=== PATIENT | male | born 1960 | race Asian ===

== ENCOUNTER → 2020-07-22 | Outpatient (CLI) | payer BC ==
[~2020-07-22] MED LIST: REGADENOSON 0.4 MG/5 ML SYRINGE ONE
== END | disposition home or self-care (01) ==
LOC: CFH 06:51
PROVIDERS: ATTEND Internal Medicine Cardiovascular Disease
DX: I08.8 Other rheumatic multiple valve diseases (principal); R07.89 Other chest pain; R06.02 Shortness of breath
CPT/HCPCS: 78452; 93017; 93306; A9502; J2785

== ENCOUNTER 2020-08-12 11:00 | Day surgery (SDC) | payer BC, OTHER ==
[~2020-08-12] VITALS: Ht 162.6 cm; Wt 62.0 kg
[2020-08-12] MEDS ORDERED: APIX5TAB PO (12:02)
[2020-08-12] MEDS ORDERED: MULT-500 PO (12:02)
[2020-08-12] MEDS ORDERED: PROPOFOL 10 MG/ML, 20ML ONE (12:41)
[2020-08-12 12:47] LABS: ANION GAP 4 mmol/L (5-15); CALCIUM 9.2 mg/dL (8.5-10.1); CHLORIDE 107 mmol/L (98-107); CREATININE 1.12 mg/dL (0.7-1.3)
== END 2020-08-12 13:53 | disposition home or self-care (01) ==
LOC: CACL 11:00
PROVIDERS: ATTEND Internal Medicine Cardiovascular Disease
DX: I48.19 Other persistent atrial fibrillation (principal); E78.00 Pure hypercholesterolemia, unspecified; Z79.01 Long term (current) use of anticoagulants; Z79.82 Long term (current) use of aspirin; Z79.899 Other long term (current) drug therapy
CPT/HCPCS: 36415; 80048; 92960; 93005; J2704

== ENCOUNTER 2020-09-15 09:53 | Day surgery (SDC) | payer OTHER ==
[~2020-09-15 09:53] MED LIST changes: +APIX5TAB PO; +MULT-500 PO; -REGADENOSON 0.4 MG/5 ML SYRINGE ONE
[2020-09-15] MEDS ORDERED: FLEC100T PO (10:16)
[2020-09-15] MEDS ORDERED: SODIUM CHLORIDE 0.9% 500 ML IV PRN (10:30)
[2020-09-15] MEDS ORDERED: PROPOFOL 10 MG/ML, 20ML ONE (12:42)
== END 2020-09-15 13:45 | disposition home or self-care (01) ==
LOC: CACL 09:53
PROVIDERS: ATTEND Internal Medicine Cardiovascular Disease
DX: I48.0 Paroxysmal atrial fibrillation (principal); E78.5 Hyperlipidemia, unspecified; Z79.01 Long term (current) use of anticoagulants; Z79.899 Other long term (current) drug therapy
CPT/HCPCS: 92960; J2704

== ENCOUNTER → 2021-03-02 | Outpatient (CLI) | payer OTHER ==
[~2021-03-02] MED LIST changes: +FLEC100T PO; +OMNIPAQUE 350 MG/ML, 150 ML BOTTLE ONE
== END | disposition home or self-care (01) ==
LOC: CFH 13:44
PROVIDERS: ATTEND Internal Medicine Cardiovascular Disease
DX: I48.91 Unspecified atrial fibrillation (principal); R06.02 Shortness of breath
CPT/HCPCS: 71046; 75572; Q9967; U0005; U0003

== ENCOUNTER 2021-03-05 06:09 | Observation (INO) | payer OTHER ==
[~2021-03-05] VITALS: Ht 160 cm; Wt 68.8 kg
[~2021-03-05 06:09] MED LIST changes: -OMNIPAQUE 350 MG/ML, 150 ML BOTTLE ONE
[2021-03-05] MEDS ORDERED: MULT-658 PO (06:44)
[2021-03-05 06:52] VITALS: BP 110/74
[2021-03-05] MEDS ORDERED: SODIUM CHLORIDE 0.9% 1,000 ML IV SCH ×2 (07:00)
[2021-03-05 07:16] LABS: BASOPHILS % (AUTO) 0 % (0-1); EOSINOPHILS % (AUTO) 4 % (1-7); LYMPHOCYTES % (AUTO) 39 % (22-44); MEAN CORPUSCULAR HEMOGLOBIN 28.4 pg (27.5-34.5); MEAN CORPUSCULAR HGB CONC 33.2 g/dL (33.2-36.2); MEAN PLATELET VOLUME 8.2 fL (7.4-10.4); MONOCYTES % (AUTO) 13 % (2-9); NEUTROPHILS % (AUTO) 44 % (42-75); PLATELET COUNT 230 x10^3/uL (130-400); RED BLOOD COUNT 5.17 x10^6/uL (4.38-5.82)
[2021-03-05] MEDS ORDERED: FENTANYL PF 250 MCG/5ML ONE (07:25)
[2021-03-05] MEDS ORDERED: MIDAZOLAM 1 MG/ML, 2ML ONE (07:25)
[2021-03-05] MEDS ORDERED: PROPOFOL 50 ML ONE (07:25)
[2021-03-05 07:26] LABS: ANION GAP 9 mmol/L (5-15); CHLORIDE 107 mmol/L (98-107); CREATININE 1.07 mg/dL (0.7-1.3)
[2021-03-05] MEDS ORDERED: DEXAMETHASONE 4 MG/ML, 1ML ONE (08:28)
[2021-03-05] MEDS ORDERED: LIDOCAINE 1%, 20ML ONE (09:03)
[2021-03-05] MEDS ORDERED: ISOPROTERENOL 0.2MG/ML, 5ML ONE (09:05)
[2021-03-05] MEDS ORDERED: SUCCINYLCHOLINE 20 MG/ML, 10ML ONE (11:36)
[2021-03-05] MEDS ORDERED: ROCURONIUM 10MG/ML,5ML ONE (11:36)
[2021-03-05] MEDS ORDERED: ONDANSETRON 2MG/ML, 2ML ONE (11:36)
[2021-03-05] MEDS ORDERED: HEPARIN 1,000 UNITS/ML, 10ML ONE ×2 (11:36)
[2021-03-05] MEDS ORDERED: ZOLPIDEM 5MG TABLET PO PRN (12:00)
[2021-03-05] MEDS ORDERED: APIXABAN 5 MG TABLET PO SCH (12:00)
[2021-03-05] MEDS ORDERED: ONDANSETRON 2MG/ML, 2ML IVPush PRN ×2 (12:00→13:00)
[2021-03-05] MEDS ORDERED: ACETAMINOPHEN 325 MG TABLET PO PRN ×2 (12:00→13:00)
[2021-03-05] MEDS: APIXABAN 5 MG TABLET PO SCH ×2 (12:00→21:55)
[2021-03-05] MEDS ORDERED: OXYcodone 5 MG/5 ML ORAL.SOL UDC ONE (12:25)
[2021-03-05] MEDS ORDERED: FENTANYL PF 100 MCG/2ML ONE (12:25)
[2021-03-05] MEDS: FENTANYL PF 100 MCG/2ML IV PRN ×2 (12:35→13:06)
[2021-03-05] MEDS ORDERED: APIXABAN 5 MG TABLET ONE (12:47)
[2021-03-05] MEDS ORDERED: DIPHENHYDRAMINE 50 MG/ML, 1ML IVPush PRN (13:00)
[2021-03-05] MEDS ORDERED: EPHEDRINE 50 MG/ML, 1ML IM PRN (13:00)
[2021-03-05] MEDS ORDERED: PROMETHAZINE 25 MG/ML, 1ML IVPush PRN (13:00)
[2021-03-05] MEDS ORDERED: morphine SULFATE 10 MG/ML, 1ML IVPush PRN (13:00)
[2021-03-05] MEDS ORDERED: OXYcodone 5 MG/5 ML ORAL.SOL UDC PO PRN (13:00)
[2021-03-05] MEDS ORDERED: DIAZEPAM 5 MG/ML, 2ML IVPush PRN (13:00)
[2021-03-05] MEDS ORDERED: EPHEDRINE 50 MG/ML, 1ML IVPush PRN (13:00)
[2021-03-05] MEDS ORDERED: LABETALOL 5MG/ML, 20ML IV PRN (13:00)
[2021-03-05] MEDS ORDERED: MEPERIDINE/PF 25MG/0.5ML IVPush PRN (13:00)
[2021-03-05 13:50] VITALS: BP 103/70
[2021-03-05 20:07] VITALS: BP 100/71
[2021-03-05] MEDS: FLECAINIDE 100MG TABLET PO SCH (21:55)
[2021-03-06 01:49] VITALS: BP 104/71
[2021-03-06 07:35] VITALS: BP 115/80
[2021-03-06] MEDS: APIXABAN 5 MG TABLET PO SCH (08:29)
[2021-03-06] MEDS: FLECAINIDE 100MG TABLET PO SCH (08:29)
[2021-03-06] MEDS ORDERED: MULTIVITAMIN 1 TABLET PO SCH (09:00)
[2021-03-06 12:58] VITALS: BP 118/77
[2021-03-06 13:14] VITALS: BP 115/69
== END 2021-03-06 14:00 | disposition home or self-care (01) ==
LOC: CACL 06:09 → ORIP 11:43 → 5SO 14:10 → DCLOUNGE 03-06 13:52
PROVIDERS: ADMIT Internal Medicine Cardiovascular Disease; ATTEND Internal Medicine Cardiovascular Disease
DX: I48.91 Unspecified atrial fibrillation (principal); Z20.822 Contact with and (suspected) exposure to COVID-19; I08.1 Rheumatic disorders of both mitral and tricuspid valves; Z79.01 Long term (current) use of anticoagulants; Z79.899 Other long term (current) drug therapy
CPT/HCPCS: 36415; 80048; 85025; 85347; 93005; 93306; 93312; 93321; 93325; 93613; 93656; 93657; 93662; C1730; C1732; C1759; C1766; C1893; C1894; G0378; J0330; J1100; J1644; J2250; J2405; J2704; J3010; J3490; U0005; U0003